=== PATIENT | female | born 1950 | race Caucasian/White ===

== ENCOUNTER 2018-03-07 18:15 | Emergency (ER) | payer MEDICARE, OTHER ==
[2018-03-07 18:44] LABS: BASOPHILS % (AUTO) 1.1 % (0.0-5.0); EOSINOPHILS % (AUTO) 2.3 % (0.0-8.0); HEMATOCRIT 42.4 % (36-48); LYMPHOCYTES % (AUTO) 23.4 % (21.0-51.0); MEAN CORPUSCULAR HEMOGLOBIN 30.5 pg (27.0-33.0); MEAN CORPUSCULAR VOLUME 92.6 fL (79-99); MONOCYTES % (AUTO) 10.1 % (3.0-13.0); NEUTROPHILS % (AUTO) 63.1 % (40.0-77.0); PLATELET COUNT (AUTO) 207 K/uL (130-400); RED BLOOD CELL COUNT(AUTO) 4.58 MIL/uL (4.00-5.50); RED CELL DISTRIBUTION WIDTH 13.2 % (11.0-15.5); WHITE BLOOD COUNT (AUTO) 6.7 K/uL (4.8-10.8)
[2018-03-07 18:55] LABS: CARBON DIOXIDE 32 mmol/L (21-32); CHLORIDE 104 mmol/L (101-111); CREATININE 0.7 mg/dL (0.5-1.5); GLOMERULAR FILTR. RATE CALC 88 mL/min (>60); GLUCOSE,RANDOM 116 mg/dL (70-105); POTASSIUM 3.5 mmol/L (3.5-5.1); SODIUM SERUM 144 mmol/L (136-145); UREA NITROGEN, BLOOD 13 mg/dL (7-18)
[2018-03-07 19:06] LABS: ALANINE AMINOTRANSFERASE 21 U/L (12-78); ASPARTATE AMINOTRANSFERASE 26 U/L (10-37); BILIRUBIN,TOTAL 0.6 mg/dL (0.2-1.0); CREATINE KINASE, TOTAL 69 U/L (21-232); MYOGLOBIN 28 ng/mL (10-92); TOTAL PROTEIN, SERUM 7.4 g/dL (6.0-8.3); TROPONIN I < 0.04 ng/mL (0.00-0.06)
[2018-03-07 19:34] LABS: B-TYPE NATRIURETIC PEPTIDE 43 pg/mL (0-100)
== END 2018-03-07 22:22 | disposition home or self-care (01) ==
LOC: EDH 18:15
DX: R07.89 Other chest pain (principal); I10 Essential (primary) hypertension; Z98.890 Other specified postprocedural states
CPT/HCPCS: 36415; 71045; 80053; 82550; 83874; 83880; 84484; 85025; 93005

== ENCOUNTER 2018-04-01 04:26 | Emergency (ER) | payer OTHER ==
[2018-04-01] MEDS ORDERED: ONDANSETRON ODT 4 MG TAB ONE (04:55)
[2018-04-01] MEDS ORDERED: KETOROLAC TROMETHAMINE 30MG/ML ONE (04:55)
[2018-04-01] MEDS ORDERED: METHYLPREDNISOLONE SOD SUCC 125MG/2ML VIAL ONE (04:55)
[2018-04-01] MEDS ORDERED: HYDROMORPHONE 1 MG/1 ML AMP ONE (04:56)
== END 2018-04-01 06:38 | disposition home or self-care (01) ==
LOC: EDH 04:26
DX: M54.16 Radiculopathy, lumbar region (principal); I10 Essential (primary) hypertension; Z88.8 Allergy status to other drugs, medicaments and biological substances
CPT/HCPCS: 72131; 96372 ×3; 99284; J1170; J1885; J2930

== ENCOUNTER → 2023-02-15 | Outpatient (CLI) | payer OTHER | END | disposition home or self-care (01) | LOC: RAH 10:52 | PROVIDERS: ATTEND Nurse Practitioner Adult Health | DX: M47.812 Spondylosis without myelopathy or radiculopathy, cervical region (principal); M25.511 Pain in right shoulder; M54.2 Cervicalgia | CPT/HCPCS: 72040; 73030 ==

== ENCOUNTER → 2023-03-13 | Outpatient (CLI) | payer OTHER | END | disposition home or self-care (01) | LOC: RAH 14:24 | PROVIDERS: ATTEND Nurse Practitioner Adult Health | DX: M47.812 Spondylosis without myelopathy or radiculopathy, cervical region (principal); M48.02 Spinal stenosis, cervical region; M50.222 Other cervical disc displacement at C5-C6 level | CPT/HCPCS: 72141 ==

== ENCOUNTER 2024-02-14 22:34 | Emergency (ER) | payer OTHER ==
[~2024-02-14] VITALS: Ht 157.5 cm; Wt 52.2 kg
[2024-02-14 22:35] VITALS: TEMP 98.2
--- NOTE | 2024-02-14 22:35 | NUR ---
CERVICAL COLLAR PLACED.
--- NOTE | 2024-02-14 23:22 | HMCIMG ---
CHEST 1VW HISTORY: Status post fall COMPARISON: 03/07/2018 FINDINGS: A frontal projection of the chest was obtained. Prominent interstitial markings are seen with possible superimposed infiltrates. The heart is borderline enlarged. Degenerative changes are seen. No evidence of aortic calcification is seen. IMPRESSION: 1. Prominent interstitial markings are seen with possible superimposed infiltrates.
--- NOTE | 2024-02-14 23:24 | HMCIMG ---
SHOULDER COMP 2+VWS RT HISTORY: Status post fall COMPARISON: None TECHNIQUE: 2 images of right shoulder were obtained. FINDINGS: There is no acute displaced fracture or dislocation. Degenerative changes are seen. IMPRESSION: 1. Findings as described above.
--- NOTE | 2024-02-14 23:42 | HMCIMG ---
CT HEAD/BRAIN W/O CONTRAST HISTORY: Status post fall COMPARISON: None TECHNIQUE: Multiple sequential axial images of the head were obtained from the base of the skull through vertex. Patient was not given contrast through intravenous route. FINDINGS: The ventricles and extraventricular CSF spaces are dilated consistent with cerebral atrophy. Nonspecific white matter changes seen. There is no midline shift, mass effect or herniation. No acute intracranial bleed is seen. Visualized portion of the paranasal sinuses are grossly within normal limits. IMPRESSION: 1. No acute intracranial bleed is seen. 2. Atrophy with white matter changes. CT was performed with one or more following dose reduction techniques: automated exposure control, adjustment of the mA and kv according to patient's size, or use of a iterative reconstruction technique.
--- NOTE | 2024-02-14 23:46 | HMCIMG ---
CT CERVICAL SPINE W/O CONTRAST HISTORY: Status post fall COMPARISON: None TECHNIQUE: Multiple sequential axial images of the cervical spine were obtained including post processing sagittal and coronal reconstruction images. Patient was not given contrast through intravenous route. FINDINGS: Orthopedic fixation plates and screws are seen traversing the C6-C7 level with disc fusion. Disc space narrowings are seen at C2-3 through 7 levels. There is central canal narrowing. There is cervical spine spondylosis. There is straightening of normal lordotic cervical curvature which may be related to muscle spasm or positioning. There is no loss of vertebral height. Evaluation for disc and cord pathology is limited with CT study. No evidence of fracture or dislocation is seen. IMPRESSION: 1. No fracture is seen. 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 CT was performed with one or more following dose reduction techniques: automated exposure control, adjustment of the mA and kv according to patient's size, or use of a iterative reconstruction technique.
[2024-02-15] MEDS: acetaMINOPHEN 325 MG TAB PO ONE (00:18)
--- NOTE | 2024-02-15 00:27 | ERN ---
ED Note History of Present Illness Stated Complaint: FALL Chief Complaint: Mechanical Fall Time Seen by MD: 22:40 Time Seen by Midlevel: 22:40 Dictation: The patient is a 73-year-old female with a history of hypertension, neck surgery, cervical disc degeneration who presents to the emergency department with complaints of right shoulder, neck pain after she accidentally tripped over her dog causing her to hit her right shoulder against the door and falling to the floor. Patient denies any LOC nausea or vomiting. Denies use of blood thinners. Patient denies any chest pain, back pain, abdominal pain, extremity pain other than shoulder. Denies any other injuries. Allergies: Coded Allergies: diazepam (Unverified Allergy, Unknown, 02/14/24) Past Medical History Past Medical History: Hypertension, Other Additional Past Medical Hx: back pain, neck pain Surgical History: Hysterectomy, Tonsillectomy, Other Surgical History Other: neck sx. History: Not Applicable RN Note Reviewed/Agreed w/PFSH: Yes Review of System Dictation Constitutional: Negative for fever,chills, and weight loss Eyes: Negative for injury, pain,redness, and discharge ENT: Negative for injury,pain or swelling Cardiovascular: Negative for chest pain, palpitations, and edema Respiratory: Negative for shortness of breath, cough, and wheezing, Abdomen/GI: Negative for abdominal pain, nausea, vomiting, diarrhea, and constipation Back: Negative for injury and pain : Negative for injury, bleeding and discharge MS/Extremity: Negative for injury and deformity positive for neck pain, right s houlder pain Skin: Negative for rash, and discoloration Neuro: Negative for headache, weakness, numbness, tingling, and seizure Psych: Negative for suicide ideation, homicidal ideation, and hallucinations Initial Vital Sign VS Vital Signs Date Time Temp Pulse Resp B/P (MAP) Pulse Ox O2 Delivery O2 Flow Rate FiO2 02/14/24 22:35 98.2 82 18 207/87 97 Room Air 0 02/15/24 00:16 21 Physical Exam Dictation Vital Signs reviewed General Appearance: Alert, oriented x 3, no acute distress, well developed, nourished. Head and Face: non-traumatic. Eyes: PERRL, pink conjunctivas, eyelid no trauma, anterior chamber with arcus senilis. Ears: Pinnas intact and no signs of trauma or erythema ear canals clear and no discharge TM no erythema Nose: No discharge, no bleeding. Oropharynx: Mouth normal, tongue pink. pharynx clear,no erythema, tonsils no exudates, no abscesses noted, mucous membrane moist Neck: Supple, non-tender, no thyromegaly, no masses, no JVD, no bruits Breast:Deferred Chest:No tenderness, no crepitus, no paradoxical movement, no retractions Lungs:Clear, well-ventilated, symmetric, no rales, no wheezing, no rhonchi, no stridor, good breath sounds bilaterally Heart: Regular rate, regular rhythm, no murmur, no gallops Vascular: no peripheral edema, radial pulses 3+ bilaterally Abdomen: Soft, positive bowel sounds, nondistended, no guarding, nontender, no rebound, no masses no hepatomegaly, no splenomegaly, no Castelan's s ign, no hernias. Rectal: Deferred Genital: Deferred Neurological: Normal speech, motor function intact, sensory function intact Musculoskeletal: Neck nontender, full range of motion, back nontender, full range of motion, Extremities: nontender, full range of motion , right shoulder tenderness, full range of motion, cap refill less than 2 seconds Skin: Color pink, dry, no turgor, no rash, no lacerations, no abrasions, no contusions. Lymphatic: Deferred Results (Laboratory/Radiology) Laboratory/Radiology REASON: fall, head trauma ORDERING PHYSICIAN: SUSAN LUEVANO RN RESEARCH PROCEDURE: C SPIN WO - CT CERVICAL SPINE W/O CONTRAST CT CERVICAL SPINE W/O CONTRAST HISTORY: Status post fall COMPARISON: None TECHNIQUE: Multiple sequential axial images of the cervical spine were obtained including post processing sagittal and coronal reconstruction images. Patient was not given contrast through intravenous route. FINDINGS: Orthopedic fixation plates and screws are seen traversing the C6-C7 level with disc fusion. Disc space narrowings are seen at C2-3 through 7 levels. There is central canal narrowing. There is cervical spine spondylosis. There is straightening of normal lordotic cervical curvature which may be related to muscle spasm or positioning. There is no loss of vertebral height. Evaluation for disc and cord pathology is limited with CT study. No evidence of fracture or dislocation is seen. IMPRESSION: 1. No fracture is seen. 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 CT was performed with one or more following dose reduction techniques: automated exposure control, adjustment of the mA and kv according to patient's size, or use of a iterative reconstruction technique. REASON: fall, head trauma ORDERING PHYSICIAN: SUSAN LUEVANO [facility] PROCEDURE: HEAD WO - CT HEAD/BRAIN W/O CONTRAST CT HEAD/BRAIN W/O CONTRAST HISTORY: Status post fall COMPARISON: None TECHNIQUE: Multiple sequential axial images of the head were obtained from the base of the skull through vertex. Patient was not given contrast through intravenous route. FINDINGS: The ventricles and extraventricular CSF spaces are dilated consistent with cerebral atrophy. Nonspecific white matter changes seen. There is no midline shift, mass effect or herniation. No acute intracranial bleed is seen. Visualized portion of the paranasal sinuses are grossly within normal limits. IMPRESSION: 1. No acute intracranial bleed is seen. 2. Atrophy with white matter changes. CT was performed with one or more following dose reduction techniques: automated exposure control, adjustment of the mA and kv according to patient's size, or use of a iterative reconstruction technique. REASON: fall ORDERING PHYSICIAN: SUSAN LUEVANO [facility] PROCEDURE: CXR1VW - CHEST 1VW CHEST 1VW HISTORY: Status post fall COMPARISON: 03/07/2018 FINDINGS: A frontal projection of the chest was obtained. Prominent interstitial markings are seen with possible superimposed infiltrates. The heart is borderline enlarged. Degenerative changes are seen. No evidence of aortic calcification is seen. IMPRESSION: 1. Prominent interstitial markings are seen with possible superimposed infiltrates. REASON: fall ORDERING PHYSICIAN: SUSAN LUEVANO [facility] PROCEDURE: SHOL 2V RT - SHOULDER COMP 2+VWS RT SHOULDER COMP 2+VWS RT HISTORY: Status post fall COMPARISON: None TECHNIQUE: 2 images of right shoulder were obtained. FINDINGS: There is no acute displaced fracture or dislocation. Degenerative changes are seen. IMPRESSION: 1. Findings as described above. Labs Reviewed?: Yes ED Course ED Course Orders Procedure Category Date Status Time Ct Head/Brain W/O CT 02/14/24 Resulted Contrast 22:56 Ct Cervical Spine W/O CT 02/14/24 Resulted Contrast 22:56 Shoulder Comp 2+Vws Rt RAD 02/14/24 Resulted 22:56 Chest 1vw RAD 02/14/24 Resulted 22:56 Acetaminophen 325 Tab PHA 02/14/24 Complete (Tylenol 325mg Tab 23:00 Current Medications Medications (Trade) Dose Ordered Sig/Tomás Route PRN Reason Start Time Stop Time Status Last Admin Dose Admin Acetaminophen (TYLenol 325MG TAB) 650 mg ONCE ONCE PO 02/14/24 23:00 02/14/24 23:01 DC 02/15/24 00:18 Vital Signs Date Time Temp Pulse Resp B/P (MAP) Pulse Ox O2 Delivery O2 Flow Rate FiO2 02/15/24 00:16 76 17 204/98 95 Room Air* 0 21 02/14/24 22:35 98.2 82 18 207/87 97 Room Air 0 Medical Decision Making MDM The patient is a 73-year-old female with a history of hypertension, neck surgery, cervical disc degeneration who presents to the emergency department with complaints of right shoulder, neck pain after she accidentally tripped over her dog causing her to hit her right shoulder against the door and falling to the floor. Patient denies any LOC nausea or vomiting. Denies use of blood thinners. Patient denies any chest pain, back pain, abdominal pain, extremity pain other than shoulder. Denies any other injuries. Shoulder x-ray showed no acute fractures or dislocations, C-spine no acute fractures dislocations, DJD patient reports she has a history and has refused surgery. CT head showed no acute intracranial bleed, x-ray showed increased markings, patient continues in no acute distress, alert and oriented x4. Ambulatory, no neuro deficits noted. Patient will be discharged to follow up with PCP. Differential diagnosis: C-spine fracture, shoulder dislocation, shoulder contusion, intracerebral hemorrhage Need for hospitalization: Patient does not meet criteria for hospitalization. There are no social concerns with this patient. DX & DISP Disposition: Discharge Departure Impression: Primary Impression: Fall Additional Impressions: Contusion of right shoulder, Neck pain, DJD (degenerative joint disease) of cervical spine Condition: Stable Additional Instructions: Please follow up with your primary doctor in 1-2 days. If symptoms worsen please return to ER. FOLLOW-UP WITH PRIMARY CARE PROVIDER IN 1 TO 2 DAYS. TAKE MEDICATIONS DIRECTED HERE IN THE EMERGENCY ROOM. OKAY TO CONTINUE HOME MEDICATIONS UNLESS OTHERWISE DISCUSSED DURING YOUR VISIT IN THE EMERGENCY ROOM TODAY. RETURN TO YOUR NEAREST EMERGENCY ROOM IF SYMPTOMS WORSEN OR IF THERE IS NO IMPROVEMENT. CALL 911 IF YOU NEED IMMEDIATE ASSISTANCE. TAKE TYLENOL OR MOTRIN [id number] NEEDED AND IF NO CONTRAINDICATIONS ARE PRESENT. INCREASE ORAL HYDRATION. A WOUND CULTURE OR URINE CULTURE WAS ORDERED HERE IN THE EMERGENCY ROOM DEPARTMENT PLEASE FOLLOW-UP WITH PRIMARY CARE PROVIDER AND ADVISE THEM TO GET REPEAT PORTS FROM OUR FACILITY. IF YOU HAD ANY CATALINO WRAP/SPLINTS THAT WERE APPLIED HERE, PLEASE DO NOT REMOVE THEM UNTIL YOU SEE YOUR PRIMARY CARE OR SPECIALTY. Referrals: [facility] (PCP) Time of Disposition: 00:34 I have reviewed the case, and I agree with, Diagnosis and Plan SUSAN LUEVANO RN RESEARCH Feb 15, 2024 00:27
[2024-02-15 00:57] VITALS: BP 165/81; PULSE 72; RESP 17; O2SAT 98
== END 2024-02-15 01:01 | disposition home or self-care (01) ==
LOC: EDH 22:34
DX: S40.011A Contusion of right shoulder, initial encounter (principal); M54.2 Cervicalgia; R51.9 Headache, unspecified; M47.812 Spondylosis without myelopathy or radiculopathy, cervical region; I10 Essential (primary) hypertension; Z90.710 Acquired absence of both cervix and uterus; W01.0XXA Fall on same level from slipping, tripping and stumbling without subsequent striking against object, initial encounter; Y93.K1 Activity, walking an animal; Y92.89 Other specified places as the place of occurrence of the external cause; Y99.8 Other external cause status
CPT/HCPCS: 70450; 71045; 72125; 73030; 99284